=== PATIENT | male | born 1970 | race Caucasian/White ===

== ENCOUNTER 2016-10-07 14:43 | Inpatient (IN) | payer MEDICARE, OTHER ==
[2016-10-06 21:36] LABS: BASOPHILS 0.9 %; BASOPHILS ABSOLUTE 0.1 10/3/uL (0.0-0.2); EOSINOPHILS 2.1 %; EOSINOPHILS ABSOLUTE 0.1 10/3/uL (0.0-0.5); LYMPHOCYTES 24.4 %; LYMPHOCYTES ABSOLUTE 1.5 10/3/uL (0.7-4.3); MEAN CORPUS HGB CONC 32.4 g/dL (32.0-36.0); MEAN CORPUSCULAR VOLUME 89.5 fL (80-100); MEAN PLATELET VOLUME 8.9 fL (6.8-10.8); MONOCYTES 10.9 %; MONOCYTES ABSOLUTE 0.7 10/3/uL (0.2-1.2); NEUTROPHILS 61.7 %; NEUTROPHILS ABSOLUTE 3.7 10/3/uL (2.0-8.4); RBC DISTRIBUTION WIDTH 15.7 % (12.0-16.0)
[2016-10-06 21:44] LABS: MANUAL DIFF NO %; PLATELET COUNT 342 10/3/uL (150-400); RED CELL COUNT 4.13 10/6/uL (4.7-6.1)
--- NOTE | ~2016-10-07 | DS ---
Discharge Summary [facility] [address] [place]. [address] NAME: DIONNA LAUREANO : 74 STATUS : ADM IN PAT#: [id number] AGE: 46 ADM/REG DATE : 10/07/16 MR#: [id number] REPORT SERV DATE: 10/16/16 DICTATED BY: DATE: REPORT STATUS : Draft TRANSCRIBED BY: MODL DATE: 10/15/16 ADMISSION DATE: 10/07/2016 DISCHARGE DATE: 10/15/2016 DISCHARGE DIAGNOSES: 1. Elevated amylase. 2. Chronic alcoholic pancreatitis with pancreatic pseudocyst. 3. Severe protein-calorie malnutrition. 4. Sarcoid exacerbation. 5. 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 6. Chronic pain in hands, feet, and back. 7. Chronic diarrhea. 8. Gastroesophageal reflux disease. CONSULTATIONS: GI, Dr. Samuels. PROCEDURES AND IMAGING: On 10/07/2016, CT of the chest without contrast showed: 1. Sequelae of old calcified granulomatous disease. 2. Otherwise unremarkable CT of the chest with no thoracic adenopathy or active pulmonary disease. CT of the abdomen and pelvis showed: 1. Complex cystic lesion involving the anterior margin of the tail of the pancreas measuring 3.5 x 2.8. Probably pancreatic pseudocyst. 2. Status post partial right hemicolectomy. Air-distended mildly redundant transverse colon, descending colon, and proximal sigmoid colon, tapering to normal caliber at the level of the mid sigmoid colon with suggestion of mild thickening, distal sigmoid colon and rectal vault. Possible representation of a low-grade, partially obstructed large bowel process relating to a distal colitis or proctitis pattern if in the appropriate clinical setting. 3. Infrarenal IVC filter at the L2-3 level. 4. Probable subcentimeter cyst in the right lobe of the liver. On 10/07/2016, chest PA and lateral showed no evidence of acute cardiopulmonary disease. On 10/15/2016, CT of the abdomen and pelvis with p.o. and IV contrast showed: 1. Interval increase in size of cystic lesion abutting the pancreatic tail, measuring up to 32 x 48 mm. Suspecting this may represent interval enlargement of the pancreatic pseudocyst. Mild dilatation of the pancreatic duct distal to this within the tip of the pancreatic tail and some edema surrounding the peripancreatic fat plane suggestive of acute pancreatitis. 2. The splenic flexure of the colon appears thickened likely secondary to inflamed adjacent pancreatic cystic lesion in the pancreatic tail. 3. Small ascites in the abdomen and [id number] ascites in the pelvis. HOSPITAL COURSE: Please refer to Dr. Clemente's H and P dated 10/08/2016 for complete details Discharge Summary [place] [address] [address] NAME: DIONNA LAUREANO : 74 STATUS : ADM IN [facility]#: [id number] AGE: 46 ADM/REG DATE : 10/07/16 MR#: [id number] REPORT SERV DATE: 10/16/16 DICTATED BY: DATE: REPORT STATUS : Draft TRANSCRIBED BY: MODL DATE: 10/15/16 regarding the patient's admission. In brief, the patient was admitted by Dr. Clemente for initial workup and management of his weight loss and diarrhea. The patient was sent from his primary care physician with complaints of diarrhea for a month's duration and an abnormally elevated amylase. The patient was having 7 to 10 watery loose stools a day. During his stay, the patient has gradually had diminished amount of watery stools. They do seem to be related to eating. The patient has had extensive laboratory testing with his original amylase being 5764 and his albumin being 1.8. The patient's lactate was elevated to 3.4 and his a.m. cortisol was 5.3. ACTH was 10. Stool studies were done on his diarrhea and the patient was negative for C. difficile, ova and parasites, and leukocytes. The patient has had negative blood cultures x2 at 4 days. The patient's pancreatic isoenzymes, his pancreatic amylase was 330, his salivary amylase was 4257, and his total amylase was 4587. His ionized calcium was 4.05, pre-albumin was 11.1. The patient is HIV negative. His labs from today: CBC with WBCs of 11.3, hemoglobin 8.3, hematocrit 24.4, platelets 260. Sodium is 141, potassium 3.3, chloride is 108, carbon dioxide is 26, BUN is 3, creatinine is 0.61, GFR is 141, glucose 139, calcium 7.2, magnesium 1.9, phosphorus 1.4, and albumin 1.3. The patient's amylase has continued to fluctuate between 2000 to 4000. The patient has also been experiencing severe back pain, which has been somewhat relieved by IV pain medicine as well as heating pad. Baclofen has also been started for possible muscle spasm. The patient will be discharged with this medication. The patient does have a history of being followed by pain management physician in [place]. The patient has chronic parotid swelling due to his sarcoidosis and the amount of swelling seems to vary according to exacerbations. The patient also has severe protein calorie malnutrition. His albumin has been 1.3. Extensive discussion was given to the patient regarding intake of protein shakes and foods that are high in protein including vegetables and dairy. The patient will be discharged on per Dr. Samuels with GI for his elevated amylase. The patient will also be taking PPI for his GERD. The patient continues to have chronic diarrhea, but states that it has eased up some at present. The patient is on potassium 20 mEq 4 times a day at home and this will be resumed upon his discharge. The patient will be following up with Dr. Samuels as needed upon discharge and Dr. Box on Wednesday. The patient states his back spasms are doing better. We discussed extensively his need to increase his protein intake as well as his calories and the patient verbalizes his understanding. Current abdominal pain is 5/10 and his back pain is 5/10 also. REVIEW OF SYSTEMS: Full 10-point review of systems was undertaken and is negative other than HPI. PHYSICAL EXAMINATION: VITAL SIGNS: Blood pressure 103/59, O2 saturation is 100% on room, respirations are 16, heart rate is 70, temperature is 98.6. HEENT: Head is atraumatic, normocephalic. Pupils are equal, round, reactive to light. No xanthelasma. Sclerae are clear, nonicteric. Poor dentition. NECK: Supple with bilateral parotid gland swelling. Neck veins are flat. CARDIAC: S1 and S2 with no obvious murmurs, rubs, or gallops. LUNGS: Clear to auscultation with normal respiratory effort. GASTROINTESTINAL: Abdomen is soft and nontender. Abdomen is sunken. Active bowel sounds in all four quadrants. No palpable organomegaly. Discharge Summary [place] [id number] [place] [address] NAME: DIONNA LAUREANO : 74 STATUS : ADM IN [facility]#: [id number] AGE: 46 ADM/REG DATE : 10/07/16 MR#: [id number] REPORT SERV DATE: 10/16/16 DICTATED BY: DATE: REPORT STATUS : Draft TRANSCRIBED BY: LÁZARO DATE: 10/15/16 EXTREMITIES: No significant edema, clubbing, or cyanosis. Dorsalis pedis and posterior tibial pulses are present bilaterally with no clubbing or cyanosis. MUSCULOSKELETAL: Moves all extremities x4. He is ambulatory without assistance. No difficulties with balance. SKIN: Warm, dry, and intact with normal color and turgor. NEURO/PSYCH: The patient is alert and oriented x4. He is cooperative. Cranial nerves 2 through 12 are grossly intact. DISCHARGE DIET: The patient to be discharged home on high-protein diet. The patient's eating habits have been fluctuating during his stay according to his pain and diarrhea. DISCHARGE MEDICATIONS: Baclofen 5 mg three times a day as needed for back spasms; Creon 36 units 4 times a day with meals; multivitamin 1 tablet daily; omeprazole 20 mg twice daily; Klor-Con 20 mEq 4 times daily; clonazepam 2 mg daily at bedtime; Tylenol No. 4 q.6 hours p.r.n. pain; Proctozone 1 application per rectum p.r.n. hemorrhoids; Ventolin inhaler two puffs p.r.n. shortness of breath; lactulose 30 mL p.o. twice a day as directed per PCP. ALLERGIES: THE PATIENT IS ALLERGIC TO PROZAC FOR WHICH HE HAS SWEATING, TACHYCARDIA, AND BAD FEELINGS. DISCHARGE INSTRUCTIONS: The patient is to follow up with his PCP, Dr. Franco Box, in four days. The patient is also to follow up with Dr. Samuels as needed. Should the patient develop any more extreme abdominal pain or have excessive diarrhea, he is to call his PCP or present to the ER. Approximately 40 minutes has been spent coordinating discharge care of this patient including [id number]-cy-czcf encounter and summarization of the discharge. DICTATED BY: KENTON Crenshaw/LÁZARO Vicky Granados NP / [id number] CC: MD Franco Ruggiero M.D.
--- NOTE | ~2016-10-07 | HP ---
History And Physical [place] [id number] [place]. [address] NAME: DIONNA LAUREANO : 74 STATUS : ADM Johnna PAT#: [id number] AGE: 46 ADM/REG DATE : 10/07/16 MR#: [id number] REPORT SERV DATE: 10/08/16 DICTATED BY: EMORY SOLORZANO DATE: 10/07/16 REPORT STATUS : Draft TRANSCRIBED BY: MODNella DATE: 10/07/16 DATE OF ADMISSION: 10/07/2016 CHIEF COMPLAINT: Weight loss and diarrhea. HISTORY OF PRESENT ILLNESS: This is a 46-year-old male with medical history significant for sarcoidosis, chronic pancreatitis, who presented to his primary care physician with complaints of diarrhea of a month's duration. His primary care physician ordered a comprehensive metabolic profile and CBC and he was found to have an abnormal elevated amylase and significantly low albumin. Hence, primary care physician advised him to come to the ER for further evaluation. During my interview, the patient reported that he noticed progressive diarrhea which started about a month ago, normally has about 7-10 watery loose stools a day. There are some occasional intermittent bloody stools. He said diarrhea is usually precipitated by a meal. No specific greasy or fatty meal precipitates his diarrhea. He also reported that he usually develops watery loose stool 15 minutes after eating. He denies any blood or mucus in the stool. He reported intermittent abdominal pain. The patient reports compliance with his pancreatic lipase. He endorsed positive history of significant weight loss of about 15 pounds in the last one month. He denies any associated nausea, vomiting, jaundice, or constipation. Of note, the patient reports that he used to drink heavily and was diagnosed with alcoholic pancreatitis. However, he quit drinking about 18 months ago. Also of note, the patient reported that he had a bowel resection surgery in 2013 where he was told that 18 inches of his small bowel and 18 inches of his large bowel were removed as well as his gallbladder. The patient could not remember the definitive diagnosis and the indication of the surgery. He reported that this surgery was performed at [facility]. The patient also reported associated bilateral parotid swelling. The patient reported that this usually happens when he is having acute flare of his sarcoidosis. He denies any skin rash. He denies any shortness of breath. No cough. No blurry vision. No fever. No chills. No night sweats. He denies any photosensitivity in eye. He denies any nodular patches in any part of his body. PAST MEDICAL HISTORY: 1. Sarcoidosis. 2. Chronic pancreatitis. 3. Anxiety disorder. PAST SURGICAL HISTORY: 1. Exploratory laparotomy with cholecystectomy and large and small bowel resection in 2013. 2. History of knee surgery. 3. History of carpal tunnel surgery. ALLERGIES: THE PATIENT IS ALLERGIC TO PROZAC, REPORTS EXTENSIVE TREMORS, POSSIBLE SEROTONIN SYNDROME PER THE PATIENT'S DESCRIPTION. History And Physical [address] [address] NAME: DIONNA LAUREANO : 74 STATUS : ADM Johnna PAT#: [id number] AGE: 46 ADM/REG DATE : 10/07/16 MR#: [id number] REPORT SERV DATE: 10/08/16 DICTATED BY: EMORY SOLORZANO DATE: 10/07/16 REPORT STATUS : Draft TRANSCRIBED BY: LÁZARO DATE: 10/07/16 SOCIAL HISTORY: Quit drinking alcohol about 18 months ago. He reported that he started drinking in 1994. Used to drink about 1-3 bottles of beer a day, but quit after multiple episodes of acute pancreatitis. The patient denies smoking cigarettes. Denies illicit drug use. He is currently and lives alone and is currently on disability. He is presently unemployed on disability. FAMILY HISTORY: Unknown. The patient reports that he was adopted. REVIEW OF SYSTEMS: A 12-point review of systems performed, essentially negative. Positive findings as per HPI. PHYSICAL EXAMINATION: VITAL SIGNS: Blood pressure 96/62, pulse 67 beats per minute, temperature 98.6, saturating 100% on room air. GENERAL: A chronically ill-appearing male, cachectic with prominent zygoma, bilateral parotid swelling, mildly tender. HEENT: Oral mucosa with tinge of oral thrush on the tongue. Edentulous. Oral cavity dry. NECK: Supple. No JVD. CHEST: Nontender. Equal expansion. Clear to auscultation bilaterally. No wheezing. No rhonchi. No crackles. HEART: Regular rate and rhythm. S1 and S2. No murmurs, no rubs, no gallops. ABDOMEN: Soft. Mild diffuse tenderness. No rebound. No guarding. No palpably enlarged organomegaly. Bowel sounds normoactive. LOWER EXTREMITIES: No pedal edema. LABORATORY DATA: Chemistry: Sodium 144, potassium 4.0, chloride 110, bicarb 28, BUN 3, creatinine 0.72, GFR 131, glucose 79, calcium 7.4, total protein 5.8, albumin 1.4, globulin 4.4, albumin to globulin ratio is 0.3, total bilirubin 0.4, alkaline phosphatase 73. ALT 23, AST 31, amylase 4302, lipase 54, TSH 1.74, lactate 2.5. CBC: WBC 5.4, hemoglobin 10.3, hematocrit 29.5, MCV 84.8, platelets 288. Ammonia 28. Chest x-ray ordered. ASSESSMENT: 1. Failure to thrive. 2. Chronic diarrhea. 3. Weight loss. 4. Bilateral parotid enlargement likely due to sarcoidosis flare. 5. Chronic pancreatic insufficiency. 6. Malabsorption syndrome. 7. Elevated serum amylase. 8. Hypotension. PLAN: 1. Failure to thrive secondary to chronic diarrhea likely related to malabsorption secondary to pancreatic insufficiency. Other possibility is a possibility of dumping syndrome given small bowel and large bowel resection. At this point, the patient reports that he is currently hungry and wants to eat. Will continue oral intake. Will History And Physical [address] [address] NAME: DIONNA LAUREANO : 74 STATUS : ADM Johnna PAT#: [id number] AGE: 46 ADM/REG DATE : 10/07/16 MR#: [id number] REPORT SERV DATE: 10/08/16 DICTATED BY: EMORY SOLORZANO DATE: 10/07/16 REPORT STATUS : Draft TRANSCRIBED BY: MODNella DATE: 10/07/16 continue the patient's pancreatic lipase. I will consult the patient's primary drafter marine. I will order stool study to rule out infective etiology. Other concerns would be possibility of malignancy in this patient with severe weight loss. I will add a CT scan of the chest, abdomen, and pelvis to evaluate for occult malignancy. I will also order an HIV screen. 2. Hypotension due to chronic diarrhea. Continue IV fluid resuscitation at this time. After a liter of fluid in the ER, the patient's blood pressure is improved from the low 90s to 100 and has remained stable. We will continue IV fluid resuscitation. 3. Bilateral parotid enlargement likely related to sarcoidosis flare. Enlarged parotid glands may also explain the patient's elevated transaminase which the patient reported that this is in keeping with his known sarcoidosis, I will start the patient on prednisone 20 mg p.o. daily and monitor. 4. Admission disposition, inpatient. 5. Admission status, observation. 6. Code status, full code. 7. DVT prophylaxis, heparin subcu. 8. The patient will be admitted under the hospitalist service. We will follow up as an inpatient. IOO/MODL Emory Solorzano MD / [id number]
--- NOTE | ~2016-10-07 | DS ---
Discharge Summary [facility] [address] [place]. [address] NAME: DIONNA LAUREANO : 74 STATUS : DIS IN PAT#: [id number] AGE: 46 ADM/REG DATE : 10/07/16 MR#: [id number] REPORT SERV DATE: 10/16/16 DICTATED BY: DATE: REPORT STATUS : Draft TRANSCRIBED BY: MODL DATE: 10/16/16 ADMISSION DATE: 10/07/2016 DISCHARGE DATE: 10/16/2016 ADDENDUM: The patient was not discharged yesterday due to increased diarrheal stools from contrast dye and elevated amylase. The patient's discharge medications have been altered to include baclofen 10 mg t.i.d. p.r.n., Zenpep two capsules at 10 o'clock and 1530 hours, Protonix 40 mg p.o. before breakfast and supper, and potassium chloride 40 mEq at breakfast and bedtime and 20 mEq at lunch and supper, and we are stopping the omeprazole. The patient has followup appointment with Dr. Box at 0815 hours for labs and reassessment of his current pancreatic status. The patient's amylase today was 1804. I am linking this to discharge summary #[id number]. DICTATED BY: KENTON Crenshaw/LÁZARO Vicky Granados NP / [id number] CC: MD Franco Ruggiero M.D.
[2016-10-07 04:46] LABS: ALBUMIN 1.8 G/DL (3.5-5.0); BUN (BLOOD UREA NITROGEN) 3 MG/DL (6-23); CALCIUM, SERUM 7.9 MG/DL (8.5-10.4); CHLORIDE, SERUM 108 MMOL/L (96-112); CREATININE 0.74 MG/DL (0.70-1.30); GFR AFRICAN AMERICAN 130 ML/MIN (>=60); GFR NON AFRICAN AMERICAN 112 ML/MIN (>=60); POTASSIUM, SERUM 3.8 MMOL/L (3.5-5.3); SGOT(AST) 62 U/L (5-40); SGPT(ALT) 34 U/L (5-65); SODIUM, SERUM 142 MMOL/L (135-148); TOTAL BILIRUBIN 0.5 MG/DL (0-1.2)
[2016-10-07 04:50] LABS: A/G RATIO 0.3 (0.7-1.9); ALKALINE PHOSPHATASE 90 U/L (45-117); CO2 (CARBON DIOXIDE) 20 MMOL/L (24-34); GLOBULIN 5.3 G/DL (2.5-4.1); GLUCOSE, SERUM 82 MG/DL (60-99); TOTAL PROTEIN 7.1 G/DL (6.0-8.5)
[~2016-10-07 14:43] MED LIST: KLONO2 PO; LEVOTHYROXIN100 MCG PO; ROXICODONE30 MG PO
[2016-10-07 16:17] LABS: BASOPHILS 0.7 %; BASOPHILS ABSOLUTE 0.04 10/3/uL (0.0-0.16); EOSINOPHILS 1.8 %; ER CBC TAT 0 Hrs 11 Mins; HEMOGLOBIN 10.3 g/dL (13.6-17.8); LYMPHOCYTES 25.7 %; MEAN CORPUSCULAR HEMOGLOB 29.6 pg (26.0-34.0); MEAN PLATELET VOLUME 9.1 fL (9.2-13.0); MONOCYTES 13.1 %; MONOCYTES ABSOLUTE 0.71 10/3/uL (0.21-1.20); NEUTROPHILS 58.7 %; NEUTROPHILS ABSOLUTE 3.19 10/3/uL (2.02-8.40); PLATELET COUNT 288 10/3/uL (150-400); RBC DISTRIBUTION WIDTH 15.9 % (12.0-16.0); RED CELL COUNT 3.48 10/6/uL (4.7-6.1); WHITE BLOOD CELLS 5.4 10/3/uL (4.5-10.5)
[2016-10-07 16:18] LABS: HEMATOCRIT 29.5 % (40.0-51.0); MEAN CORPUS HGB CONC 34.9 g/dL (32.0-36.0); MEAN CORPUSCULAR VOLUME 84.8 fL (80-100)
[2016-10-07 16:19] LABS: MANUAL DIFF NO %
[2016-10-07 16:25] LABS: BUN (BLOOD UREA NITROGEN) 3 MG/DL (6-23); CALCIUM, SERUM 7.4 MG/DL (8.5-10.4); CHLORIDE, SERUM 110 MMOL/L (96-112); CREATININE 0.72 MG/DL (0.70-1.30); GFR AFRICAN AMERICAN 131 ML/MIN (>=60); GFR NON AFRICAN AMERICAN 113 ML/MIN (>=60); GLUCOSE, SERUM 79 MG/DL (60-99); SGOT(AST) 31 U/L (5-40); SGPT(ALT) 23 U/L (5-65); SODIUM, SERUM 144 MMOL/L (135-148); TOTAL BILIRUBIN 0.4 MG/DL (0-1.2); TOTAL PROTEIN 5.8 G/DL (6.0-8.5)
[2016-10-07 16:28] LABS: A/G RATIO 0.3 (0.7-1.9); ALBUMIN 1.4 G/DL (3.5-5.0); ALKALINE PHOSPHATASE 73 U/L (45-117); CO2 (CARBON DIOXIDE) 28 MMOL/L (24-34); GLOBULIN 4.4 G/DL (2.5-4.1)
[2016-10-07 16:35] LABS: LACTATE 2.5 MMOL/L (0.3-2.4)
[2016-10-07] MEDS ORDERED: TYLENOL #4 PO (17:52)
[2016-10-07] MEDS ORDERED: KLONO2 PO (17:53)
[2016-10-07] MEDS ORDERED: PROCTOZONE HC 2.5% PR (17:53)
[2016-10-07] MEDS ORDERED: KLOR-CON M2020 MEQ PO (17:55)
[2016-10-07] MEDS ORDERED: CREON DR 36,001 EACH PO (17:55)
[2016-10-07] MEDS ORDERED: ENULOSE PO (17:56)
[2016-10-07] MEDS ORDERED: VENTOLIN HFA INH (17:56)
[2016-10-07] MEDS ORDERED: MULTIVIT/MIN PO (17:57)
[2016-10-07 22:43] LABS: FREE T4 0.95 NG/DL (0.76-1.46)
[2016-10-08 01:37] LABS: ASCORBIC ACID (UR NOT ORDER) 20 (NEG); BILIRUBIN, URINE NEGATIVE (NEG); KETONE, URINE NEGATIVE (NEG); LEUKOCYTE ESTERASE(NOT OR NEG (NEG); WBC (NOT ORDERED) (RFLEX) 2 (0-5)
[2016-10-08 04:24] LABS: BASOPHILS 0.3 %; BASOPHILS ABSOLUTE 0.02 10/3/uL (0.0-0.16); EOSINOPHILS 0.3 %; EOSINOPHILS ABSOLUTE 0.02 10/3/uL (0.0-0.53); HEMATOCRIT 30.4 % (40.0-51.0); HEMOGLOBIN 10.5 g/dL (13.6-17.8); IMMATURE GRANULOCYTES 0.1 %; IMMATURE GRANULOCYTES ABSOLUTE 0.01 10/3/uL (0.0-0.11); LYMPHOCYTES 21.6 %; LYMPHOCYTES ABSOLUTE 1.51 10/3/uL (0.67-4.30); MEAN CORPUS HGB CONC 34.5 g/dL (32.0-36.0); MEAN CORPUSCULAR HEMOGLOB 29.2 pg (26.0-34.0); MEAN CORPUSCULAR VOLUME 84.7 fL (80-100); MEAN PLATELET VOLUME 9.6 fL (9.2-13.0); MONOCYTES 7.6 %; MONOCYTES ABSOLUTE 0.53 10/3/uL (0.21-1.20); NEUTROPHILS 70.1 %; NEUTROPHILS ABSOLUTE 4.89 10/3/uL (2.02-8.40); PLATELET COUNT 344 10/3/uL (150-400); RBC DISTRIBUTION WIDTH 15.7 % (12.0-16.0); RED CELL COUNT 3.59 10/6/uL (4.7-6.1)
[2016-10-08 04:31] LABS: MANUAL DIFF NO %
[2016-10-08 04:44] LABS: ALBUMIN 1.5 G/DL (3.5-5.0); BUN (BLOOD UREA NITROGEN) 5 MG/DL (6-23); CALCIUM, SERUM 7.2 MG/DL (8.5-10.4); CHLORIDE, SERUM 111 MMOL/L (96-112); CO2 (CARBON DIOXIDE) 26 MMOL/L (24-34); CREATININE 0.58 MG/DL (0.70-1.30); GFR AFRICAN AMERICAN 144 ML/MIN (>=60); GFR NON AFRICAN AMERICAN 124 ML/MIN (>=60); GLUCOSE, SERUM 83 MG/DL (60-99); PHOSPHORUS, SERUM 2.9 MG/DL (2.5-4.5); POTASSIUM, SERUM 3.7 MMOL/L (3.5-5.3); SODIUM, SERUM 143 MMOL/L (135-148)
[2016-10-08 10:57] LABS: PROCALCITONIN 0.63 ng/mL (<0.5)
[2016-10-09 08:08] LABS: PREALBUMIN 9.6 MG/DL (17.0-43.0)
[2016-10-09 08:44] LABS: BUN (BLOOD UREA NITROGEN) 6 MG/DL (6-23); CALCIUM, SERUM 7.5 MG/DL (8.5-10.4); CHLORIDE, SERUM 116 MMOL/L (96-112); CREATININE 0.83 MG/DL (0.70-1.30); GFR AFRICAN AMERICAN 124 ML/MIN (>=60); GFR NON AFRICAN AMERICAN 107 ML/MIN (>=60); SODIUM, SERUM 142 MMOL/L (135-148)
[2016-10-09 08:45] LABS: CO2 (CARBON DIOXIDE) 17 MMOL/L (24-34); GLUCOSE, SERUM 105 MG/DL (60-99); POTASSIUM, SERUM 4.5 MMOL/L (3.5-5.3)
[2016-10-09 09:46] LABS: INTERNATIONAL NORMAL RATI 1.5 UNITS (-); PROTIME (NOT ORD) 18.1 SEC (12.0-14.5)
[2016-10-10 04:13] LABS: BASOPHILS 0.2 %; BASOPHILS ABSOLUTE 0.01 10/3/uL (0.0-0.16); EOSINOPHILS 0 %; HEMATOCRIT 28.8 % (40.0-51.0); HEMOGLOBIN 9.7 g/dL (13.6-17.8); IMMATURE GRANULOCYTES 0.2 %; IMMATURE GRANULOCYTES ABSOLUTE 0.01 10/3/uL (0.0-0.11); LYMPHOCYTES ABSOLUTE 1.02 10/3/uL (0.67-4.30); MEAN CORPUS HGB CONC 33.7 g/dL (32.0-36.0); MEAN CORPUSCULAR VOLUME 86.2 fL (80-100); MEAN PLATELET VOLUME 9.7 fL (9.2-13.0); MONOCYTES 5.7 %; MONOCYTES ABSOLUTE 0.34 10/3/uL (0.21-1.20); NEUTROPHILS 76.9 %; NEUTROPHILS ABSOLUTE 4.63 10/3/uL (2.02-8.40); PLATELET COUNT 298 10/3/uL (150-400); RED CELL COUNT 3.34 10/6/uL (4.7-6.1)
[2016-10-10 04:19] LABS: MANUAL DIFF NO %
[2016-10-10 04:32] LABS: ALBUMIN 1.6 G/DL (3.5-5.0); ALKALINE PHOSPHATASE 73 U/L (45-117); BUN (BLOOD UREA NITROGEN) 6 MG/DL (6-23); CALCIUM, SERUM 7.7 MG/DL (8.5-10.4); CHLORIDE, SERUM 111 MMOL/L (96-112); CO2 (CARBON DIOXIDE) 24 MMOL/L (24-34); CREATININE 0.82 MG/DL (0.70-1.30); DIRECT BILIRUBIN 0.2 MG/DL (0.0-0.4); GAMMA GT 75 U/L (5-85); GFR AFRICAN AMERICAN 125 ML/MIN (>=60); GFR NON AFRICAN AMERICAN 108 ML/MIN (>=60); GLUCOSE, SERUM 113 MG/DL (60-99); INDIRECT BILIRUBIN(NOT ORDER) 0.2 MG/DL (0.1-0.9); PHOSPHORUS, SERUM 2.2 MG/DL (2.5-4.5); POTASSIUM, SERUM 4.3 MMOL/L (3.5-5.3); SGOT(AST) 16 U/L (5-40); SGPT(ALT) 20 U/L (5-65); SODIUM, SERUM 141 MMOL/L (135-148); TOTAL BILIRUBIN 0.4 MG/DL (0-1.2); TOTAL PROTEIN 5.9 G/DL (6.0-8.5)
[2016-10-11 07:28] LABS: BASOPHILS 0.1 %; BASOPHILS ABSOLUTE 0.01 10/3/uL (0.0-0.16); EOSINOPHILS 0.1 %; EOSINOPHILS ABSOLUTE 0.01 10/3/uL (0.0-0.53); HEMATOCRIT 27.4 % (40.0-51.0); IMMATURE GRANULOCYTES 0.3 %; IMMATURE GRANULOCYTES ABSOLUTE 0.02 10/3/uL (0.0-0.11); LYMPHOCYTES 28.1 %; LYMPHOCYTES ABSOLUTE 2.09 10/3/uL (0.67-4.30); MEAN CORPUS HGB CONC 32.8 g/dL (32.0-36.0); MEAN CORPUSCULAR HEMOGLOB 28.2 pg (26.0-34.0); MEAN CORPUSCULAR VOLUME 85.9 fL (80-100); MEAN PLATELET VOLUME 9.3 fL (9.2-13.0); MONOCYTES 12.2 %; MONOCYTES ABSOLUTE 0.91 10/3/uL (0.21-1.20); NEUTROPHILS 59.2 %; NEUTROPHILS ABSOLUTE 4.41 10/3/uL (2.02-8.40); PLATELET COUNT 242 10/3/uL (150-400); RED CELL COUNT 3.19 10/6/uL (4.7-6.1); WHITE BLOOD CELLS 7.5 10/3/uL (4.5-10.5)
[2016-10-11 07:31] LABS: MANUAL DIFF NO %
[2016-10-11 07:33] LABS: A/G RATIO 0.4 (0.7-1.9); ALBUMIN 1.5 G/DL (3.5-5.0); ALKALINE PHOSPHATASE 65 U/L (45-117); BUN (BLOOD UREA NITROGEN) 3 MG/DL (6-23); CALCIUM, SERUM 7.9 MG/DL (8.5-10.4); CHLORIDE, SERUM 111 MMOL/L (96-112); CO2 (CARBON DIOXIDE) 24 MMOL/L (24-34); CREATININE 0.66 MG/DL (0.70-1.30); GFR AFRICAN AMERICAN 136 ML/MIN (>=60); GFR NON AFRICAN AMERICAN 118 ML/MIN (>=60); GLOBULIN 3.6 G/DL (2.5-4.1); GLUCOSE, SERUM 81 MG/DL (60-99); POTASSIUM, SERUM 3.9 MMOL/L (3.5-5.3); SGOT(AST) 14 U/L (5-40); SGPT(ALT) 16 U/L (5-65); SODIUM, SERUM 143 MMOL/L (135-148); TOTAL BILIRUBIN 0.4 MG/DL (0-1.2); TOTAL PROTEIN 5.1 G/DL (6.0-8.5)
[2016-10-12 06:48] LABS: BASOPHILS 0.1 %; BASOPHILS ABSOLUTE 0.01 10/3/uL (0.0-0.16); EOSINOPHILS 0.1 %; EOSINOPHILS ABSOLUTE 0.01 10/3/uL (0.0-0.53); HEMATOCRIT 28.9 % (40.0-51.0); IMMATURE GRANULOCYTES 0.2 %; IMMATURE GRANULOCYTES ABSOLUTE 0.02 10/3/uL (0.0-0.11); LYMPHOCYTES 14.5 %; LYMPHOCYTES ABSOLUTE 1.19 10/3/uL (0.67-4.30); MANUAL DIFF NO %; MEAN CORPUS HGB CONC 34.6 g/dL (32.0-36.0); MEAN CORPUSCULAR HEMOGLOB 29.6 pg (26.0-34.0); MEAN CORPUSCULAR VOLUME 85.5 fL (80-100); MEAN PLATELET VOLUME 10.3 fL (9.2-13.0); MONOCYTES 13.8 %; MONOCYTES ABSOLUTE 1.13 10/3/uL (0.21-1.20); NEUTROPHILS 71.3 %; NEUTROPHILS ABSOLUTE 5.83 10/3/uL (2.02-8.40); PLATELET COUNT 289 10/3/uL (150-400); RBC DISTRIBUTION WIDTH 15.9 % (12.0-16.0); RED CELL COUNT 3.38 10/6/uL (4.7-6.1); WHITE BLOOD CELLS 8.2 10/3/uL (4.5-10.5)
[2016-10-12 07:01] LABS: A/G RATIO 0.4 (0.7-1.9); ALBUMIN 1.6 G/DL (3.5-5.0); ALKALINE PHOSPHATASE 71 U/L (45-117); BUN (BLOOD UREA NITROGEN) 5 MG/DL (6-23); CALCIUM, SERUM 7.4 MG/DL (8.5-10.4); CHLORIDE, SERUM 107 MMOL/L (96-112); CO2 (CARBON DIOXIDE) 28 MMOL/L (24-34); CREATININE 0.76 MG/DL (0.70-1.30); GFR AFRICAN AMERICAN 129 ML/MIN (>=60); GFR NON AFRICAN AMERICAN 111 ML/MIN (>=60); GLOBULIN 4.1 G/DL (2.5-4.1); GLUCOSE, SERUM 95 MG/DL (60-99); POTASSIUM, SERUM 3.9 MMOL/L (3.5-5.3); SGOT(AST) 14 U/L (5-40); SGPT(ALT) 15 U/L (5-65); SODIUM, SERUM 141 MMOL/L (135-148); TOTAL BILIRUBIN 0.6 MG/DL (0-1.2); TOTAL PROTEIN 5.7 G/DL (6.0-8.5)
[2016-10-12 19:26] LABS: PANCREATIC AMYLASE ISOENZYME 330 U/L (12-52); SALIVARY AMYLASE ISOENZYME 4257 U/L (9-86); TOTAL AMYLASE FOR ISOENZYMES 4587 U/L (30-110)
[2016-10-13 06:34] LABS: BASOPHILS 0 %; EOSINOPHILS 0.1 %; EOSINOPHILS ABSOLUTE 0.01 10/3/uL (0.0-0.53); HEMOGLOBIN 10.8 g/dL (13.6-17.8); IMMATURE GRANULOCYTES 0.2 %; IMMATURE GRANULOCYTES ABSOLUTE 0.02 10/3/uL (0.0-0.11); LYMPHOCYTES 13.6 %; LYMPHOCYTES ABSOLUTE 1.13 10/3/uL (0.67-4.30); MEAN CORPUSCULAR HEMOGLOB 28.9 pg (26.0-34.0); MEAN PLATELET VOLUME 10.1 fL (9.2-13.0); MONOCYTES 13.5 %; MONOCYTES ABSOLUTE 1.12 10/3/uL (0.21-1.20); NEUTROPHILS 72.6 %; PLATELET COUNT 330 10/3/uL (150-400); RBC DISTRIBUTION WIDTH 16.1 % (12.0-16.0); RED CELL COUNT 3.74 10/6/uL (4.7-6.1); WHITE BLOOD CELLS 8.3 10/3/uL (4.5-10.5)
[2016-10-13 06:35] LABS: HEMATOCRIT 31.8 % (40.0-51.0); MANUAL DIFF NO %
[2016-10-13 06:50] LABS: A/G RATIO 0.4 (0.7-1.9); ALBUMIN 1.7 G/DL (3.5-5.0); ALKALINE PHOSPHATASE 72 U/L (45-117); BUN (BLOOD UREA NITROGEN) 7 MG/DL (6-23); CHLORIDE, SERUM 104 MMOL/L (96-112); CO2 (CARBON DIOXIDE) 27 MMOL/L (24-34); CREATININE 0.67 MG/DL (0.70-1.30); GFR AFRICAN AMERICAN 135 ML/MIN (>=60); GFR NON AFRICAN AMERICAN 117 ML/MIN (>=60); GLOBULIN 4.5 G/DL (2.5-4.1); GLUCOSE, SERUM 103 MG/DL (60-99); POTASSIUM, SERUM 3.7 MMOL/L (3.5-5.3); SGOT(AST) 13 U/L (5-40); SGPT(ALT) 16 U/L (5-65); SODIUM, SERUM 139 MMOL/L (135-148); TOTAL BILIRUBIN 0.5 MG/DL (0-1.2); TOTAL PROTEIN 6.2 G/DL (6.0-8.5)
[2016-10-14 06:00] LABS: BASOPHILS 0.1 %; BASOPHILS ABSOLUTE 0.01 10/3/uL (0.0-0.16); EOSINOPHILS 0 %; HEMATOCRIT 29.4 % (40.0-51.0); IMMATURE GRANULOCYTES 0.2 %; IMMATURE GRANULOCYTES ABSOLUTE 0.03 10/3/uL (0.0-0.11); LYMPHOCYTES 8.7 %; LYMPHOCYTES ABSOLUTE 1.11 10/3/uL (0.67-4.30); MEAN CORPUSCULAR HEMOGLOB 28.8 pg (26.0-34.0); MEAN CORPUSCULAR VOLUME 84.7 fL (80-100); MONOCYTES 19.2 %; MONOCYTES ABSOLUTE 2.46 10/3/uL (0.21-1.20); NEUTROPHILS 71.8 %; NEUTROPHILS ABSOLUTE 9.17 10/3/uL (2.02-8.40); PLATELET COUNT 241 10/3/uL (150-400); RBC DISTRIBUTION WIDTH 16.1 % (12.0-16.0); RED CELL COUNT 3.47 10/6/uL (4.7-6.1)
[2016-10-14 06:01] LABS: MANUAL DIFF NO %; WHITE BLOOD CELLS 12.8 10/3/uL (4.5-10.5)
[2016-10-14 06:17] LABS: ALBUMIN 1.5 G/DL (3.5-5.0); ALKALINE PHOSPHATASE 63 U/L (45-117); BUN (BLOOD UREA NITROGEN) 5 MG/DL (6-23); CALCIUM, SERUM 7.7 MG/DL (8.5-10.4); CHLORIDE, SERUM 103 MMOL/L (96-112); CO2 (CARBON DIOXIDE) 25 MMOL/L (24-34); CREATININE 0.75 MG/DL (0.70-1.30); DIRECT BILIRUBIN 0.2 MG/DL (0.0-0.4); GFR AFRICAN AMERICAN 129 ML/MIN (>=60); GFR NON AFRICAN AMERICAN 112 ML/MIN (>=60); GLUCOSE, SERUM 121 MG/DL (60-99); INDIRECT BILIRUBIN(NOT ORDER) 0.4 MG/DL (0.1-0.9); POTASSIUM, SERUM 3.3 MMOL/L (3.5-5.3); PREALBUMIN 11.1 MG/DL (17.0-43.0); SGOT(AST) 12 U/L (5-40); SGPT(ALT) 12 U/L (5-65); SODIUM, SERUM 136 MMOL/L (135-148); TOTAL BILIRUBIN 0.6 MG/DL (0-1.2); TOTAL PROTEIN 5.9 G/DL (6.0-8.5)
[2016-10-14 06:28] LABS: GAMMA GT 55 U/L (5-85)
[2016-10-14 07:07] LABS: PROCALCITONIN 0.19 ng/mL (<0.5)
[2016-10-15 00:05] LABS: PANCREATIC AMYLASE ISOENZYME 300 U/L (12-52); SALIVARY AMYLASE ISOENZYME 3829 U/L (9-86); TOTAL AMYLASE FOR ISOENZYMES 4129 U/L (30-110)
[2016-10-15 07:48] LABS: BASOPHILS 0 %; EOSINOPHILS 0.1 %; EOSINOPHILS ABSOLUTE 0.01 10/3/uL (0.0-0.53); HEMOGLOBIN 8.3 g/dL (13.6-17.8); IMMATURE GRANULOCYTES 0.4 %; IMMATURE GRANULOCYTES ABSOLUTE 0.04 10/3/uL (0.0-0.11); LYMPHOCYTES 9.9 %; LYMPHOCYTES ABSOLUTE 1.11 10/3/uL (0.67-4.30); MEAN CORPUSCULAR HEMOGLOB 28.9 pg (26.0-34.0); MEAN PLATELET VOLUME 9.7 fL (9.2-13.0); MONOCYTES ABSOLUTE 1.46 10/3/uL (0.21-1.20); NEUTROPHILS 76.6 %; NEUTROPHILS ABSOLUTE 8.63 10/3/uL (2.02-8.40); PLATELET COUNT 260 10/3/uL (150-400); RBC DISTRIBUTION WIDTH 15.9 % (12.0-16.0); RED CELL COUNT 2.87 10/6/uL (4.7-6.1); WHITE BLOOD CELLS 11.3 10/3/uL (4.5-10.5)
[2016-10-15 07:50] LABS: HEMATOCRIT 24.4 % (40.0-51.0); MANUAL DIFF NO %
[2016-10-15 08:09] LABS: ALBUMIN 1.3 G/DL (3.5-5.0); BUN (BLOOD UREA NITROGEN) 3 MG/DL (6-23); CALCIUM, SERUM 7.2 MG/DL (8.5-10.4); CHLORIDE, SERUM 108 MMOL/L (96-112); CO2 (CARBON DIOXIDE) 26 MMOL/L (24-34); CREATININE 0.61 MG/DL (0.70-1.30); GFR AFRICAN AMERICAN 141 ML/MIN (>=60); GFR NON AFRICAN AMERICAN 121 ML/MIN (>=60); GLUCOSE, SERUM 139 MG/DL (60-99); POTASSIUM, SERUM 3.3 MMOL/L (3.5-5.3); SODIUM, SERUM 141 MMOL/L (135-148)
[2016-10-15 08:11] LABS: PHOSPHORUS, SERUM 1.4 MG/DL (2.5-4.5)
[2016-10-16 07:07] LABS: BASOPHILS 0.1 %; BASOPHILS ABSOLUTE 0.01 10/3/uL (0.0-0.16); EOSINOPHILS 1.6 %; EOSINOPHILS ABSOLUTE 0.17 10/3/uL (0.0-0.53); HEMATOCRIT 23.8 % (40.0-51.0); IMMATURE GRANULOCYTES 0.4 %; IMMATURE GRANULOCYTES ABSOLUTE 0.04 10/3/uL (0.0-0.11); LYMPHOCYTES 17.9 %; LYMPHOCYTES ABSOLUTE 1.89 10/3/uL (0.67-4.30); MANUAL DIFF NO %; MEAN CORPUS HGB CONC 33.6 g/dL (32.0-36.0); MEAN CORPUSCULAR HEMOGLOB 28.2 pg (26.0-34.0); MEAN CORPUSCULAR VOLUME 83.8 fL (80-100); MEAN PLATELET VOLUME 9.4 fL (9.2-13.0); MONOCYTES ABSOLUTE 1.69 10/3/uL (0.21-1.20); NEUTROPHILS ABSOLUTE 6.74 10/3/uL (2.02-8.40); PLATELET COUNT 262 10/3/uL (150-400); RBC DISTRIBUTION WIDTH 15.6 % (12.0-16.0); RED CELL COUNT 2.84 10/6/uL (4.7-6.1); WHITE BLOOD CELLS 10.5 10/3/uL (4.5-10.5)
[2016-10-16 07:14] LABS: CALCIUM, SERUM 7.3 MG/DL (8.5-10.4); CHLORIDE, SERUM 111 MMOL/L (96-112); CO2 (CARBON DIOXIDE) 23 MMOL/L (24-34); CREATININE 0.55 MG/DL (0.70-1.30); GFR AFRICAN AMERICAN 147 ML/MIN (>=60); GFR NON AFRICAN AMERICAN 127 ML/MIN (>=60); POTASSIUM, SERUM 3.5 MMOL/L (3.5-5.3); SODIUM, SERUM 141 MMOL/L (135-148)
[2016-10-16 07:16] LABS: BUN (BLOOD UREA NITROGEN) < 1 MG/DL (6-23); GLUCOSE, SERUM 110 MG/DL (60-99)
[2016-10-16] MEDS ORDERED: PROTONIX PO (09:38)
[2016-10-16] MEDS ORDERED: LIOR10 PO (09:39)
[2016-10-16] MEDS ORDERED: ZENPEP5000 UNIT PO (09:40)
== END 2016-10-16 10:15 | disposition home or self-care (01) | DRG 438 ==
LOC: ER 14:43 → CDU1 18:15 → CDU2 20:32 → 5SO 10-09 14:32
PROVIDERS: Hospitalist; Internal Medicine; Internal Medicine Gastroenterology; Nurse Practitioner Family
DX: K85.20 Alcohol induced acute pancreatitis without necrosis or infection (principal); E43 Unspecified severe protein-calorie malnutrition; I95.9 Hypotension, unspecified; E87.2 Acidosis; E86.0 Dehydration; Z68.1 Body mass index [BMI] 19.9 or less, adult; K86.3 Pseudocyst of pancreas; K86.0 Alcohol-induced chronic pancreatitis; D86.9 Sarcoidosis, unspecified; G89.29 Other chronic pain; K52.9 Noninfective gastroenteritis and colitis, unspecified; R62.7 Adult failure to thrive; K21.9 Gastro-esophageal reflux disease without esophagitis; R00.1 Bradycardia, unspecified; Z88.8 Allergy status to other drugs, medicaments and biological substances; Z79.899 Other long term (current) drug therapy; Z98.890 Other specified postprocedural states; Z90.49 Acquired absence of other specified parts of digestive tract; Z72.0 Tobacco use; F41.9 Anxiety disorder, unspecified; E87.6 Hypokalemia
CPT/HCPCS: 36415; 71020; 71250; 74176; 74177; 80048; 80053; 80069; 80076; 81001; 82024; 82140; 82150; 82150-59; 82330; 82533; 82977; 83605; 83690; 83735; 84100; 84134; 84145; 84439; 84443; 85025; 85610; 87040; 87045; 87046; 87046-59; 87328; 87329; 87389; 87493; 87493-59; 87899; 87899-59; 89055; 89125; 93005; 99284; A9270-GY; C9113; G0463; J0834; J1170; J2405; J2543; Q9967